=== PATIENT | female | born 1930 | race Caucasian/White ===

== ENCOUNTER 2017-04-03 14:47 | Observation (INO) | payer MEDICARE, OTHER ==
[~2017-04-03] VITALS: Ht 157.5 cm; Wt 75.2 kg
[2017-04-03] MEDS ORDERED: SODIUM CHLORIDE 0.9% 1000ML 1,000 ML IV STA (15:43)
[2017-04-03] MEDS ORDERED: ONDANSETRON INJ 2 MG/ML 2 ML VIAL IV STA (15:43)
--- NOTE | 2017-04-03 15:49 | EMERGENCY ROOM VISIT NOTE ---
History Report prepared by Myesha: Renata Delgadillo Under the Supervision of: Dr. Sean La D.O. First contact with patient: 15:36 Chief Complaint: FALL Stated Complaint: FALL Nursing Triage Summary: Fall on a boat dock. Left sided rib cage pain. She relates that she is having difficulty breathing. She is asthmatic but this is different. Pain to the back of the upper arms. The relates that she was hanging off the dock. Unable to take deep breaths due to the pain. Lung sounds diminished. History of Present Illness The patient is an 87 year old female who presents to the Emergency Room with complaints of a fall 1 hour ago. The patient was getting out of a boat when she fell between the boat and the dock. She reports left rib pain, left wrist pain, and right upper arm pain. She denies any head injury, neck pain, hip pain, abdominal pain, back pain, elbow pain, or shoulder pain. She is able to ambulate. She is on baby aspirin a day. She denies being on any other blood thinners. Source of History: patient, family Onset: 1 hour ago Position: other (global) Quality: other (fall) Timing: other (episodic) Associated Symptoms: No neck pain, No abdominal pain, No back pain Note: Pt reports left rib pain, left wrist pain, right upper arm pain. Pt denies head injury, hip pain, elbow pain, shoulder pain. Review of Systems See HPI for pertinent positives & negatives. A total of 10 systems reviewed and were otherwise negative. Past Medical & Surgical Medical Problems: (1) Diabetes mellitus, type 2 Family History Cancer Social History Smoking Status: Never Smoker Marital Status: Occupation Status: retired Current/Historical Medications Scheduled Aspirin (Aspirin Ec), 81 MG PO DAILY Gabapentin (Neurontin), 100 MG PO TID Metformin Hcl (Glucophage), 500 MG PO DAILY Multivitamin (Multivitamin), 1 TAB PO DAILY Simvastatin (Zocor), 20 MG PO QPM Triamterene/Hctz (Dyazide 37.5MG/25MG), 1 TAB PO DAILY Scheduled PRN Albuterol Sulfate (Proventil Hfa), 2 PUFFS INH Q4H PRN for Wheezing Allergies Coded Allergies: Aspartame (Verified Allergy, Unknown, 04/03/17) Egg (Verified Allergy, Unknown, 04/03/17) Azithromycin (Verified Adverse Reaction, Mild, VOMITING, 7/9/17) Omeprazole (Verified Adverse Reaction, Mild, VOMITING, 04/03/17) Codeine (Verified Adverse Reaction, Unknown, N&V, 04/03/17) Physical Exam Vital Signs Date Time Temp Pulse Resp B/P (MAP) Pulse Ox O2 Delivery O2 Flow Rate FiO2 04/03/17 18:00 94 20 156/89 94 Room Air 04/03/17 17:14 94 20 159/85 92 Room Air 04/03/17 16:01 89 18 161/97 93 Room Air 04/03/17 15:29 93 04/03/17 15:27 94 Room Air 04/03/17 15:00 94 Room Air 04/03/17 14:58 36.5 102 20 156/86 94 Room Air Physical Exam GENERAL: Patient is awake, alert, very anxious, and uncomfortable appearing, appears to be in moderate pain. EYES: The conjunctivae are clear. The pupils are round and reactive. EARS, NOSE, MOUTH AND THROAT: The nose is without any evidence of any deformity. Mucous membranes are moist tongue is midline NECK: Left sided tenderness over the cervical spine, no midline tenderness appreciated, ROM appears intact RESPIRATORY: Normal respiratory effort is noted there is no evidence of wheezing rhonchi or rales CARDIOVASCULAR: Regular rate and rhythm noted there no murmurs rubs or gallops normal S1 normal S2 GASTROINTESTINAL: The abdomen is moderately distended with significant LUQ tenderness to palpation BACK: No midline tenderness to palpation. MUSCULOSKELETAL/EXTREMITIES: There is tenderness over the left lateral ribcage, this extends into the upper abdomen, there was tenderness over the lateral left wrist, ROM appears intact, there was ecchymosis on the right upper arm, no deformity was appreciated, pedal edema bilaterally. SKIN: There is no obvious evidence of any rash. There are no petechiae, pallor or cyanosis noted. NEUROLOGIC: Patient is awake alert and oriented x3 Medical Decision & Procedures ER Provider Diagnostic Interpretation: X-ray results as stated below per interpretation by me and the radiologist. Radiology results as stated below per my review and radiologist interpretation: RIGHT HUMERUS 2 VIEWS CLINICAL HISTORY: Fall with right arm pain. FINDINGS: AP and lateral views of the right humerus are obtained. No prior studies are available for comparison at the time of dictation. The skeletal structures are osteopenic. There is no radiographic evidence of right humeral fracture. Arthritic change is seen in the shoulder and elbow. An IV catheter is present in the antecubital fossa. The overlying soft tissues are within normal limits. The visualized right lung parenchyma appears clear. IMPRESSION: Osteopenia with no radiographic evidence of right humeral fracture. Electronically signed by: Presley Romero M.D. 04/03/2017 6:07 PM Dictated Date/Time: 04/03/2017 6:06 PM SINGLE VIEW CHEST CLINICAL HISTORY: Fall. Left-sided chest pain. FINDINGS: An AP, semierect, upright chest radiograph is correlated with chest CT performed earlier the same day 04/03/2017. The examination is degraded by portable technique and patient rotation. The cardiomediastinal silhouette is unremarkable. There is atherosclerotic calcification of the thoracic aorta. Bibasilar atelectasis is noted. There is chronic interstitial thickening. No airspace consolidation, large pleural effusion, or pneumothorax is seen. The skeletal structures are osteopenic. The left-sided rib fractures seen by CT are not well visualized by x-ray. Calcific tendinopathy is noted in the left shoulder. Degenerative change is seen throughout the thoracic spine. IMPRESSION: 1. No acute cardiopulmonary abnormality. 2. The patient's known left-sided rib fractures seen on today's CT scan were not apparent by x-ray. Electronically signed by: Presley Romero M.D. 04/03/2017 6:06 PM Dictated Date/Time: 04/03/2017 6:04 PM LEFT WRIST 4 VIEWS CLINICAL HISTORY: Fall with left wrist pain. FINDINGS: 4 views of left wrist are obtained. No prior studies are available for comparison at the time of dictation. The skeletal structures are osteopenic. There is no radiographic evidence of left wrist fracture. Mild arthritic change is seen throughout the wrist, greatest at the first carpometacarpal joint. Mild overlying soft tissue edema is observed. IMPRESSION: 1. Soft tissue swelling with no radiographic evidence of left wrist fracture. Consider short-term radiographic follow-up if there is strong clinical concern for occult fracture. 2. Osteopenia and mild arthritic change as above. Electronically signed by: Presley Romero M.D. 04/03/2017 6:04 PM Dictated Date/Time: 04/03/2017 6:[address] SCAN OF THE CHEST, ABDOMEN, AND PELVIS WITH IV CONTRAST CLINICAL HISTORY: Fall. COMPARISON STUDY: No priors. TECHNIQUE: Following the IV administration of 116 of Optiray 320, CT scan of the chest, abdomen, and pelvis was performed from the thoracic inlet to the proximal femora. Images are reviewed in the axial, sagittal, and coronal planes. IV contrast was administered without complication. Automated dose control exposure was utilized. The examination is degraded by streak artifact from the left arm which could not be elevated above the chest or abdomen. FINDINGS: CHEST: Thyroid: Imaged portions of the thyroid gland are normal in size and attenuation. A subcentimeter nodule is noted in the right lobe. Thoracic aorta: There is atherosclerotic calcification of the thoracic aorta, which is normal in caliber and demonstrates standard 3-vessel arch anatomy. No dissection is seen. Pulmonary vasculature: The pulmonary trunk is normal in caliber. There are no filling defects identified in the central pulmonary vessels to indicate pulmonary was. Note that this examination was not protocoled for evaluation of the pulmonary arteries. Heart: The heart is normal in size and configuration, and without pericardial effusion. The coronary arteries are densely calcified. Lungs and pleural spaces: There is no airspace consolidation, pleural effusion, or pneumothorax. Dependent atelectasis is observed. The trachea and central airways are clear. Scattered calcified granulomas are observed. Mediastinum: There is no mediastinal hematoma or lymphadenopathy. Teresa: Clear. Axillae: There is no axillary lymphadenopathy. Bony thorax: The skeletal structures are osteopenic. There are acute and distracted left lateral fifth through ninth rib fractures. The remainder the bony thorax appears intact. No lytic or blastic lesions are identified. Degenerative change is noted in the thoracic spine and shoulders. Soft tissues: The right breast is not identified and presumed surgically absent. ABDOMEN AND PELVIS: Liver: The contrast-enhanced liver is normal in size, contour, and attenuation. There is no intrahepatic or ductal dilatation. The hepatic veins and portal veins are patent. Gallbladder: Unremarkable. Spleen: Normal in size and attenuation. Pancreas: Moderately atrophic and grossly unremarkable. Adrenal glands: Unremarkable. Kidneys: The contrast enhanced kidneys are atrophic and without hydronephrosis. The kidneys enhance symmetrically. A 1.6 cm cyst is noted in the right kidney. Abdominal vasculature: The abdominal aorta is normal in course and caliber noting moderate to advanced atherosclerotic calcification. Bowel: The small bowel and colon are normal in course and caliber. There is mild colonic diverticulosis without CT evidence of acute diverticulitis. The appendix is not identified and reported surgically absent. Peritoneum: There is no intraperitoneal free air or abdominal ascites. There is a small fat-containing umbilical hernia. Lymphadenopathy: None. Pelvic viscera: The bladder is normal as visualized. The uterus is surgically absent. No adnexal lesion is seen. There is a fat-containing left inguinal hernia. Pelvic floor prolapse is suggested. Skeletal structures: The skeletal structures are osteopenic. The lumbosacral spine and bony pelvis appear intact. Moderate lumbosacral spondylosis is observed. No lytic or blastic lesions are seen. IMPRESSION: 1. There are acute nondistracted left lateral 5th through 9th rib fractures. 2. No additional fracture is identified. 3. There is no airspace consolidation, pleural effusion, or pneumothorax. 4. There is no evidence of solid organ injury in the abdomen or pelvis. 5. No acute infectious or inflammatory findings are seen in the abdomen or pelvis. 6. Mild colonic diverticulosis without CT evidence of acute diverticulitis. 7. Additional findings as above. Electronically signed by: Presley Romero M.D. 04/03/2017 5:07 PM Dictated Date/Time: 04/03/2017 4:[address] SCAN OF THE CERVICAL SPINE CLINICAL HISTORY: Fall. COMPARISON STUDY: No priors. TECHNIQUE: CT scan of the cervical spine is performed from the skull base to the upper thoracic spine. Images are reviewed in the axial, sagittal, and coronal planes. IV contrast was not administered for this examination. FINDINGS: Skeletal structures: The skeletal structures are osteopenic. There is no evidence of fracture or subluxation involving the cervical spine. There is incomplete bony fusion of the posterior ring of C1, likely on a congenital basis. Vertebral body height and alignment are maintained. The odontoid process and lateral masses are intact. The atlantoaxial articulation is preserved noting mild productive degenerative change. The spinous processes appear intact. There is mild multilevel cervical spondylosis. Facet arthropathy is noted at several levels. Intervertebral discs: The disc spaces are well maintained. Central canal: Gross patent. Soft tissues: The prevertebral and paraspinous soft tissues are within normal limits. There is evidence carotid calcification of the carotid bulbs. A subcentimeter nodule is noted in the right lobe of the thyroid. Calvarium: The visualized calvarium at the skull base appears intact. Brain parenchyma: Partially visualized brain parenchyma the skull base is within normal limits noting age-related involutional change. Sinuses and mastoids: The visualized paranasal sinuses are clear. The mastoid air cells are well pneumatized. Lung apices: Clear as visualized. IMPRESSION: 1. There is no evidence of fracture or subluxation involving the cervical spine. 2. Osteopenia and spondylotic change as above. Electronically signed by: Presley Romero M.D. 04/03/2017 4:54 PM Dictated Date/Time: 04/03/2017 4:[address] SCAN OF THE BRAIN WITHOUT IV CONTRAST CLINICAL HISTORY: Fall. COMPARISON STUDY: No priors. TECHNIQUE: Unenhanced axial CT scan of the brain is performed from the vertex to the skull base. CT DOSE: 2265.41 mGy.cm FINDINGS: Brain parenchyma: There are age-related involutional changes noting moderate patchy subcortical and periventricular microangiopathic change. There is no hemorrhage, mass effect, or evidence of acute territorial ischemia by CT criteria. Stanley-white matter is preserved. No extra-axial fluid collection is seen. Ventricles, sulci, cisterns: Prominent secondary to involutional change. Intracranial vasculature: There is atherosclerotic calcification of the cavernous carotid and vertebral arteries. Calvarium: The skeletal structures are osteopenic. There is no depressed calvarial fracture. Sinuses and mastoids: The visualized paranasal sinuses are clear. The mastoid air cells are well pneumatized. Orbits: The bony orbits are grossly intact. There are bilateral ocular lens implants. IMPRESSION: There is no hemorrhage, mass effect, or evidence of acute territorial ischemia by CT criteria. Electronically signed by: Presley Romero M.D. 04/03/2017 4:50 PM Dictated Date/Time: 04/03/2017 4:48 PM Laboratory Results 04/03/17 15:15 Red Blood Count 5.22, Mean Corpuscular Volume 89.1, Mean Corpuscular Hemoglobin 29.7, Mean Corpuscular Hemoglobin Concent 33.3, Mean Platelet Volume 11.6, Neutrophils (%) (Auto) 59.9, Lymphocytes (%) (Auto) 28.0, Monocytes (%) (Auto) 7.6, Eosinophils (%) (Auto) 3.5, Basophils (%) (Auto) 0.5, Neutrophils # (Auto) 6.54, Lymphocytes # (Auto) 3.05, Monocytes # (Auto) 0.83, Eosinophils # (Auto) 0.38, Basophils # (Auto) 0.05 04/03/17 15:15 Test 04/03/17 15:15 04/03/17 16:20 04/03/17 16:23 White Blood Count 10.91 K/uL (4.8-10.8) Red Blood Count 5.22 M/uL (4.2-5.4) Hemoglobin 15.5 g/dL (12.0-16.0) Hematocrit 46.5 % (37-47) Mean Corpuscular Volume 89.1 fL (80-100) Mean Corpuscular Hemoglobin 29.7 pg (25-34) Mean Corpuscular Hemoglobin Concent 33.3 g/dl (32-36) Platelet Count 250 K/uL (130-400) Mean Platelet Volume 11.6 fL (7.4-10.4) Neutrophils (%) (Auto) 59.9 % Lymphocytes (%) (Auto) 28.0 % Monocytes (%) (Auto) 7.6 % Eosinophils (%) (Auto) 3.5 % Basophils (%) (Auto) 0.5 % Neutrophils # (Auto) 6.54 K/uL (1.4-6.5) Lymphocytes # (Auto) 3.05 K/uL (1.2-3.4) Monocytes # (Auto) 0.83 K/uL (0.11-0.59) Eosinophils # (Auto) 0.38 K/uL (0-0.5) Basophils # (Auto) 0.05 K/uL (0-0.2) RDW Standard Deviation 49.1 fL (36.4-46.3) RDW Coefficient of Variation 15.1 % (11.5-14.5) Immature Granulocyte % (Auto) 0.5 % Immature Granulocyte # (Auto) 0.06 K/uL (0.00-0.02) Prothrombin Time 10.8 SECONDS (9.0-12.0) Prothromb Time International Ratio 1.0 (0.9-1.1) Activated Partial Thromboplast Time 28.2 SECONDS (21.0-31.0) Partial Thromboplastin Ratio 1.1 Est Creatinine Clear Calc Drug Dose 29.9 ml/min Estimated GFR () 42.7 Estimated GFR (Non- 36.9 BUN/Creatinine Ratio 17.2 (10-20) Calcium Level 9.0 mg/dl (8.5-10.1) Total Bilirubin 0.4 mg/dl (0.2-1) Direct Bilirubin mg/dl (0-0.2) Aspartate Amino Transf (AST/SGOT) U/L (15-37) Alanine Aminotransferase (ALT/SGPT) 30 U/L (12-78) Alkaline Phosphatase 89 U/L (45-117) Total Creatine Kinase U/L (26-192) Creatine Kinase MB 1.2 ng/ml (0.5-3.6) Creatine Kinase MB Ratio (0-3.0) Troponin I < 0.015 ng/ml (0-0.045) Total Protein 7.5 gm/dl (6.4-8.2) Albumin 3.5 gm/dl (3.4-5.0) Lipase 282 U/L (73-393) Urine Color YELLOW Urine Appearance CLOUDY (CLEAR) Urine pH 7.5 (4.5-7.5) Urine Specific [place] 1.016 (1.000-1.030) Urine Protein NEG (NEG) Urine Glucose (UA) NEG (NEG) Urine Ketones NEG (NEG) Urine Occult Blood NEG (NEG) Urine Nitrite NEG (NEG) Urine Bilirubin NEG (NEG) Urine Urobilinogen NEG (NEG) Urine Leukocyte Esterase MODERATE (NEG) Urine WBC (Auto) 10-30 /hpf (0-5) Urine RBC (Auto) 0-4 /hpf (0-4) Urine Hyaline Casts (Auto) 1-5 /lpf (0-5) Urine Epithelial Cells (Auto) 20-30 /lpf (0-5) Urine Bacteria (Auto) NEG (NEG) Urine Yeast (Auto) (NONE PRSENT) Bedside Hemoglobin 15.3 g/dl (12.0-16.0) Bedside Hematocrit 45 % (37-47) Bedside Sodium 138 mEq/L (135-144) Bedside Potassium 3.7 mEq/L (3.3-5.0) Bedside Chloride 96 mEq/L (101-112) Bedside Total CO2 27 mEq/l (24-31) Anion Gap 19.0 mmol/L (16-25) Bedside Blood Urea Nitrogen 25 mg/dl (7-18) Bedside Creatinine 1.1 mg/dl (0.6-1.3) Bedside Glucose (other) 127 mg/dl (70-99) Bedside Ionized Calcium (Britney) 1.16 mmol/l (1.12-1.32) Laboratory results per my review. Medications Administered Medications (Trade) Dose Ordered Sig/Latoya Route Start Time Stop Time Status Last Admin Dose Admin Sodium Chloride 1,000 ml @ 125 mls/hr Q8H STAT IV 04/03/17 15:43 04/03/17 23:42 04/03/17 15:43 125 MLS/HR Fentanyl Citrate (Fentanyl Inj) 50 mcg Q20M PRN IV 04/03/17 15:45 04/17/17 15:44 04/03/17 18:13 50 MCG Ondansetron HCl (Zofran Inj) 4 mg NOW STAT IV 04/03/17 15:43 04/03/17 15:46 DC 04/03/17 15:52 4 MG ECG Indication: other (fall) Rate (beats per minute): 85 Rhythm: normal sinus Findings: no ectopy, other (no acute ST segment abnormality, LVH by voltage criteria) Comparison ECG Date: 11-Aug-2004 Change: no significant change ED Course 1540: The patient was evaluated in room A12B. A complete history and physical examination were performed. 1543: Zofran Inj 4 mg IV, NSS 1000 ml @ 125 mls/hr IV. 1545: Fentanyl Citrate 50 mcg IV. 1745: Upon reevaluation, the patient is stable. I discussed results and treatment plan with her and her family. They verbalize agreement and understanding. The patient will be evaluated for further management and care. 1808: I discussed the patient's case with Dr. Schuler, [facility] hospitalist. The patient will be evaluated for further management. Medical Decision Prior records/ancillary studies reviewed. Triage Nursing notes reviewed. Additional history obtained from family. The patient's history was concerning for traumatic injury Differential diagnosis: Etiologies such as fracture, dislocation, intra-abdominal, pneumothorax, intrathoracic , intracranial, neurologic, as well as other traumatic pathologies were entertained. Medication Reconciliation: I attest that I have personally reviewed the patient' s current medications list. Patient was found to have a slightly elevated blood pressure due to circumstances. I do not believe that the patient requires hypertension monitoring. The patient is an 87-year-old female who presented to the emergency department after a fall. She was getting off a boat when she fell landing on her left side. She has multiple left-sided rib fractures but no pneumothorax hemothorax or pulmonary contusion at this time. She does not appear to have any intra- abdominal trauma. The patient was treated with IV fluids IV pain medicine and IV antiemetics. She was reevaluated multiple times. I discussed the patient's laboratory and radiographic studies with her. She was significantly improved but I'm very concerned given her age and comorbidities that with this many rib fracture she may not do well as an outpatient for this reason I discussed her case with the on-call [facility] hospitalist. They've agreed to evaluate the patient in the emergency department for further management and disposition. Consults Time Called: 1741 Consulting Phys[facility] Return[facility] Call: [phone] I discussed the patient's case with her. The patient will be evaluated for further management. Impression Primary Impression: Fall Additional Impressions: Multiple fractures of ribs of left side Chest wall contusion Abdominal contusion Left wrist sprain Scribe Attestation The scribe's documentation has been prepared under my direction and personally reviewed by me in its entirety. I confirm that the note above accurately reflects all work, treatment, procedures, and medical decision making performed by me. Departure Information Dispostion Being Evaluated By Hospitalist Usman Melchor, D.O. (PCP) Patient Instructions My [facility] Problem Qualifiers Primary Impression: Fall Encounter type: initial encounter Qualified Codes: W19.XXXA - Unspecified fall, initial encounter Additional Impressions: Multiple fractures of ribs of left side Encounter type: initial encounter Fracture type: closed Qualified Codes: S22.42XA - Multiple fractures of ribs, left side, initial encounter for closed fracture Chest wall contusion Encounter type: initial encounter Laterality: left Qualified Codes: S20.212A - Contusion of left front wall of thorax, initial encounter Left wrist sprain Encounter type: initial encounter Qualified Codes: S63.502A - Unspecified sprain of left wrist, initial encounter
[2017-04-03] MEDS: FENTANYL CITRATE INJ 50 MCG/1 ML 2 ML VIAL IV PRN ×2 (15:53→18:13)
[2017-04-03] MEDS ORDERED: ASPI81TA28 PO (15:55)
[2017-04-03] MEDS ORDERED: ALBUAER INH (15:55)
[2017-04-03] MEDS ORDERED: GABA-112 PO (15:55)
[2017-04-03] MEDS ORDERED: SIMV20TA2 PO (15:55)
[2017-04-03] MEDS ORDERED: TRIA37.5 PO (15:55)
[2017-04-03] MEDS ORDERED: MULT-506 PO (15:55)
[2017-04-03] MEDS ORDERED: GLC/500 PO (15:55)
[2017-04-03 15:57] LABS: BASO % 0.5 %; BASO ABS # 0.05 K/uL (0-0.2); COMPLETE YES; EOS % 3.5 %; HEMATOCRIT 46.5 % (37-47); IG% 0.5 %; LYMPH ABS # 3.05 K/uL (1.2-3.4); MEAN CELL VOLUME 89.1 fL (80-100); MEAN CORPUSCULAR HEMOGLOBIN 29.7 pg (25-34); MEAN CORPUSCULAR HGB CONC 33.3 g/dl (32-36); MEAN PLATELET VOLUME 11.6 fL (7.4-10.4); MONO % 7.6 %; NEUT % 59.9 %; PLATELET COUNT 250 K/uL (130-400); RED BLOOD COUNT 5.22 M/uL (4.2-5.4); WHITE BLOOD COUNT 10.91 K/uL (4.8-10.8)
[2017-04-03 16:12] LABS: ALKALINE PHOSPHATASE 89 U/L (45-117); ALT/SGPT 30 U/L (12-78); BLOOD UREA NITROGEN 22 mg/dl (7-18); BUN/CREATININE RATIO 17.2 (10-20); CARBON DIOXIDE 26 mmol/L (21-32); CHLORIDE 102 mmol/L (98-107); GLUCOSE 150 mg/dl (70-99); SODIUM 138 mmol/L (136-145)
[2017-04-03 16:15] LABS: PARTIAL THROMBOPLASTIN RATIO 1.1; PROTHROMBIN TIME (PATIENT) 10.8 SECONDS (9.0-12.0)
[2017-04-03 16:35] LABS: ISTAT CREATININE 1.1 mg/dl (0.6-1.3); ISTAT HEMOGLOBIN 15.3 g/dl (12.0-16.0); ISTAT IONIZED CALCIUM 1.16 mmol/l (1.12-1.32)
[2017-04-03 16:41] LABS: MANUAL MICROSCOPIC REQUIRED? NO; REVIEW REQ? YES; URINE APPEARANCE CLOUDY (CLEAR); URINE BILIRUBIN NEG (NEG); URINE COLOR YELLOW; URINE EPITHELIAL CELL AUTO 20-30 /lpf (0-5); URINE NITRITE NEG (NEG); URINE PH 7.5 (4.5-7.5); URINE SPECIFIC GRAVITY 1.016 (1.000-1.030); UROBILINOGEN NEG (NEG)
[2017-04-03] MEDS ORDERED: OPTIRAY 320 IV PRN (16:45)
--- NOTE | 2017-04-03 16:52 | DIAGNOSTIC IMAGING REPORT ---
CT SCAN OF THE BRAIN WITHOUT IV CONTRAST CLINICAL HISTORY: Fall. COMPARISON STUDY: No priors. TECHNIQUE: Unenhanced axial CT scan of the brain is performed from the vertex to the skull base. CT DOSE: 2265.41 mGy.cm FINDINGS: Brain parenchyma: There are age-related involutional changes noting moderate patchy subcortical and periventricular microangiopathic change. There is no hemorrhage, mass effect, or evidence of acute territorial ischemia by CT criteria. Stanley-white matter is preserved. No extra-axial fluid collection is seen. Ventricles, sulci, cisterns: Prominent secondary to involutional change. Intracranial vasculature: There is atherosclerotic calcification of the cavernous carotid and vertebral arteries. Calvarium: The skeletal structures are osteopenic. There is no depressed calvarial fracture. Sinuses and mastoids: The visualized paranasal sinuses are clear. The mastoid air cells are well pneumatized. Orbits: The bony orbits are grossly intact. There are bilateral ocular lens implants. IMPRESSION: There is no hemorrhage, mass effect, or evidence of acute territorial ischemia by CT criteria. Electronically signed by: Presley Romero M.D. 04/03/2017 4:50 PM Dictated Date/Time: 04/03/2017 4:48 PM
--- NOTE | 2017-04-03 16:56 | DIAGNOSTIC IMAGING REPORT ---
CT SCAN OF THE CERVICAL SPINE CLINICAL HISTORY: Fall. COMPARISON STUDY: No priors. TECHNIQUE: CT scan of the cervical spine is performed from the skull base to the upper thoracic spine. Images are reviewed in the axial, sagittal, and coronal planes. IV contrast was not administered for this examination. FINDINGS: Skeletal structures: The skeletal structures are osteopenic. There is no evidence of fracture or subluxation involving the cervical spine. There is incomplete bony fusion of the posterior ring of C1, likely on a congenital basis. Vertebral body height and alignment are maintained. The odontoid process and lateral masses are intact. The atlantoaxial articulation is preserved noting mild productive degenerative change. The spinous processes appear intact. There is mild multilevel cervical spondylosis. Facet arthropathy is noted at several levels. Intervertebral discs: The disc spaces are well maintained. Central canal: Gross patent. Soft tissues: The prevertebral and paraspinous soft tissues are within normal limits. There is evidence carotid calcification of the carotid bulbs. A subcentimeter nodule is noted in the right lobe of the thyroid. Calvarium: The visualized calvarium at the skull base appears intact. Brain parenchyma: Partially visualized brain parenchyma the skull base is within normal limits noting age-related involutional change. Sinuses and mastoids: The visualized paranasal sinuses are clear. The mastoid air cells are well pneumatized. Lung apices: Clear as visualized. IMPRESSION: 1. There is no evidence of fracture or subluxation involving the cervical spine. 2. Osteopenia and spondylotic change as above. Electronically signed by: Presley Romero M.D. 04/03/2017 4:54 PM Dictated Date/Time: 04/03/2017 4:48 PM
--- NOTE | 2017-04-03 17:08 | DIAGNOSTIC IMAGING REPORT ---
CT SCAN OF THE CHEST, ABDOMEN, AND PELVIS WITH IV CONTRAST CLINICAL HISTORY: Fall. COMPARISON STUDY: No priors. TECHNIQUE: Following the IV administration of 116 of Optiray 320, CT scan of the chest, abdomen, and pelvis was performed from the thoracic inlet to the proximal femora. Images are reviewed in the axial, sagittal, and coronal planes. IV contrast was administered without complication. Automated dose control exposure was utilized. The examination is degraded by streak artifact from the left arm which could not be elevated above the chest or abdomen. FINDINGS: CHEST: Thyroid: Imaged portions of the thyroid gland are normal in size and attenuation. A subcentimeter nodule is noted in the right lobe. Thoracic aorta: There is atherosclerotic calcification of the thoracic aorta, which is normal in caliber and demonstrates standard 3-vessel arch anatomy. No dissection is seen. Pulmonary vasculature: The pulmonary trunk is normal in caliber. There are no filling defects identified in the central pulmonary vessels to indicate pulmonary was. Note that this examination was not protocoled for evaluation of the pulmonary arteries. Heart: The heart is normal in size and configuration, and without pericardial effusion. The coronary arteries are densely calcified. Lungs and pleural spaces: There is no airspace consolidation, pleural effusion, or pneumothorax. Dependent atelectasis is observed. The trachea and central airways are clear. Scattered calcified granulomas are observed. Mediastinum: There is no mediastinal hematoma or lymphadenopathy. Teresa: Clear. Axillae: There is no axillary lymphadenopathy. Bony thorax: The skeletal structures are osteopenic. There are acute and distracted left lateral fifth through ninth rib fractures. The remainder the bony thorax appears intact. No lytic or blastic lesions are identified. Degenerative change is noted in the thoracic spine and shoulders. Soft tissues: The right breast is not identified and presumed surgically absent. ABDOMEN AND PELVIS: Liver: The contrast-enhanced liver is normal in size, contour, and attenuation. There is no intrahepatic or ductal dilatation. The hepatic veins and portal veins are patent. Gallbladder: Unremarkable. Spleen: Normal in size and attenuation. Pancreas: Moderately atrophic and grossly unremarkable. Adrenal glands: Unremarkable. Kidneys: The contrast enhanced kidneys are atrophic and without hydronephrosis. The kidneys enhance symmetrically. A 1.6 cm cyst is noted in the right kidney. Abdominal vasculature: The abdominal aorta is normal in course and caliber noting moderate to advanced atherosclerotic calcification. Bowel: The small bowel and colon are normal in course and caliber. There is mild colonic diverticulosis without CT evidence of acute diverticulitis. The appendix is not identified and reported surgically absent. Peritoneum: There is no intraperitoneal free air or abdominal ascites. There is a small fat-containing umbilical hernia. Lymphadenopathy: None. Pelvic viscera: The bladder is normal as visualized. The uterus is surgically absent. No adnexal lesion is seen. There is a fat-containing left inguinal hernia. Pelvic floor prolapse is suggested. Skeletal structures: The skeletal structures are osteopenic. The lumbosacral spine and bony pelvis appear intact. Moderate lumbosacral spondylosis is observed. No lytic or blastic lesions are seen. IMPRESSION: 1. There are acute nondistracted left lateral 5th through 9th rib fractures. 2. No additional fracture is identified. 3. There is no airspace consolidation, pleural effusion, or pneumothorax. 4. There is no evidence of solid organ injury in the abdomen or pelvis. 5. No acute infectious or inflammatory findings are seen in the abdomen or pelvis. 6. Mild colonic diverticulosis without CT evidence of acute diverticulitis. 7. Additional findings as above. Electronically signed by: Presley Romero M.D. 04/03/2017 5:07 PM Dictated Date/Time: 04/03/2017 4:51 PM
--- NOTE | 2017-04-03 18:05 | DIAGNOSTIC IMAGING REPORT ---
LEFT WRIST 4 VIEWS CLINICAL HISTORY: Fall with left wrist pain. FINDINGS: 4 views of left wrist are obtained. No prior studies are available for comparison at the time of dictation. The skeletal structures are osteopenic. There is no radiographic evidence of left wrist fracture. Mild arthritic change is seen throughout the wrist, greatest at the first carpometacarpal joint. Mild overlying soft tissue edema is observed. IMPRESSION: 1. Soft tissue swelling with no radiographic evidence of left wrist fracture. Consider short-term radiographic follow-up if there is strong clinical concern for occult fracture. 2. Osteopenia and mild arthritic change as above. Electronically signed by: Presley Romero M.D. 04/03/2017 6:04 PM Dictated Date/Time: 04/03/2017 6:03 PM
--- NOTE | 2017-04-03 18:07 | DIAGNOSTIC IMAGING REPORT ---
SINGLE VIEW CHEST CLINICAL HISTORY: Fall. Left-sided chest pain. FINDINGS: An AP, semierect, upright chest radiograph is correlated with chest CT performed earlier the same day 04/03/2017. The examination is degraded by portable technique and patient rotation. The cardiomediastinal silhouette is unremarkable. There is atherosclerotic calcification of the thoracic aorta. Bibasilar atelectasis is noted. There is chronic interstitial thickening. No airspace consolidation, large pleural effusion, or pneumothorax is seen. The skeletal structures are osteopenic. The left-sided rib fractures seen by CT are not well visualized by x-ray. Calcific tendinopathy is noted in the left shoulder. Degenerative change is seen throughout the thoracic spine. IMPRESSION: 1. No acute cardiopulmonary abnormality. 2. The patient's known left-sided rib fractures seen on today's CT scan were not apparent by x-ray. Electronically signed by: Presley Romero M.D. 04/03/2017 6:06 PM Dictated Date/Time: 04/03/2017 6:04 PM
--- NOTE | 2017-04-03 18:08 | DIAGNOSTIC IMAGING REPORT ---
RIGHT HUMERUS 2 VIEWS CLINICAL HISTORY: Fall with right arm pain. FINDINGS: AP and lateral views of the right humerus are obtained. No prior studies are available for comparison at the time of dictation. The skeletal structures are osteopenic. There is no radiographic evidence of right humeral fracture. Arthritic change is seen in the shoulder and elbow. An IV catheter is present in the antecubital fossa. The overlying soft tissues are within normal limits. The visualized right lung parenchyma appears clear. IMPRESSION: Osteopenia with no radiographic evidence of right humeral fracture. Electronically signed by: Presley Romero M.D. 04/03/2017 6:07 PM Dictated Date/Time: 04/03/2017 6:06 PM
[2017-04-03] MEDS ORDERED: DEXTROSE 50% 50 ML SYR IV PRN (18:45)
[2017-04-03] MEDS ORDERED: ONDANSETRON INJ 2 MG/ML 2 ML VIAL IV PRN (18:45)
[2017-04-03] MEDS ORDERED: GLUCAGON FOR INJ 1 MG VIAL SQ PRN (18:45)
[2017-04-03] MEDS ORDERED: GLUCOSE 40% GEL 15 GM TUBE PO PRN (18:45)
[2017-04-03] MEDS ORDERED: GLUCOSE 10 TABS/TUBE PO PRN (18:45)
[2017-04-03] MEDS ORDERED: PHARMACY GLYCEMIC MGMT CONSULT PRN (19:11)
--- NOTE | 2017-04-03 19:16 | Pharmacy Progress Note ---
Glycemic Control Intl Consult Date of Service Apr 03, 2017. Scope Glycemic Pharmacist consulted by Dr Schuler on 04/03/17 for glycemic control and to write orders per [facility] inpatient glycemic control protocol Objective Weight (Kilograms): 80.000 Accuchecks BSG (last 24hrs): Test 04/03/17 15:15 Random Glucose 150 mg/dl (70-99) Laboratory Data (last 24hrs) Test 04/03/17 15:15 04/03/17 16:23 Anion Gap 10.0 mmol/L 19.0 mmol/L BUN/Creatinine Ratio 17.2 Blood Urea Nitrogen 22 mg/dl Creatinine 1.30 mg/dl Potassium Level mmol/L Sodium Level 138 mmol/L White Blood Count 10.91 K/uL Red Blood Count 5.22 M/uL Hemoglobin 15.5 g/dL Hematocrit 46.5 % Mean Corpuscular Volume 89.1 fL Mean Corpuscular Hemoglobin 29.7 pg Mean Corpuscular Hemoglobin Concent 33.3 g/dl Platelet Count 250 K/uL Mean Platelet Volume 11.6 fL Neutrophils (%) (Auto) 59.9 % Lymphocytes (%) (Auto) 28.0 % Monocytes (%) (Auto) 7.6 % Eosinophils (%) (Auto) 3.5 % Basophils (%) (Auto) 0.5 % Neutrophils # (Auto) 6.54 K/uL Lymphocytes # (Auto) 3.05 K/uL Monocytes # (Auto) 0.83 K/uL Eosinophils # (Auto) 0.38 K/uL Basophils # (Auto) 0.05 K/uL Recent Pertinent Medications Outpatient Anti-diabetic Regimen: * metformin 500 mg PO daily Risk Factors for Insulin Resistance: * Diet: type 2 diabetic diet * patient also in significant pain Assessment & Plan ASSESSMENT: * ADA & AACE recommend a goal blood sugar range 140-180 mg/dl for the majority of critically ill & non-critically ill patients. However, more stringent targets may be selected in individual cases. Will utilize more stringent goal of 110-140mg/dl based on patient age & comorbidities. Additionally, tighter glycemic control is warranted to prevent any infections with rib fractures * Ms Dimas is an 87 y/o F who presented to the hospital with multiple L rib fx after falling while getting out of a boat. The patient is at risk for elevated blood sugars due to her pain. I will utilize a weight-based stress of 2 for correctional insulin. Since the patient is on metformin only at home, I do not think that she will require Lantus yet as she most likely does not have much insulin resistance. If she has two blood sugars over 180 mg/dL, then Lantus will be added. * An A1C was added. PLAN FOR INPATIENT GLYCEMIC CONTROL: * Holding outpatient oral diabetes medications * Correctional Insulin with NOVOLOG per scale ACHS * Goal Range: Low 110 mg/dL - High 140 mg/dL * Correction Factor: 30 mg/dL/unit * Nutritional / Prandial insulin per carb ratio of 1 unit per 10 grams CHO consumed * Please note that the plan above was derived based on current level of insulin resistance and hospital stress. These recommendations are appropriate for inpatient admission only. Plan of care upon discharge will need to be reassessed to avoid potential outpatient hypo/hyperglycemia. Thank you.
[2017-04-03 20:04] VITALS: BP 151/91; PULSE 97; TEMP 36.5; O2SAT 93; Ht 157.5 cm; Wt 75.2 kg
[2017-04-03 20:37] VITALS: BP 110/69; PULSE 95; TEMP 36.9; O2SAT 94
[2017-04-03] MEDS ORDERED: IV FLUIDS COMPLETED PRN (20:45)
[2017-04-03] MEDS: INSULIN ASPART 100 UNITS/ML 3 ML PEN SC SCH (21:00)
[2017-04-03] MEDS ORDERED: INSULIN GLARGINE SOLOSTAR 100 UNITS/ML 3 ML PEN SC SCH (21:00)
[2017-04-03] MEDS ORDERED: MoRPHine SULFATE 4 MG/ML 1 ML CARP\\VIAL IV PRN (21:30)
[2017-04-03] MEDS ORDERED: KETOROLAC TROMETHAMINE 15 MG/ML VIAL IM SCH (21:30)
[2017-04-03] MEDS: HEPARIN SOD 5000 UNIT/0.5 ML CARP SQ SCH (21:35)
[2017-04-03] MEDS ORDERED: ALBUTEROL HFA 8 GM INHALER INH PRN (21:45)
[2017-04-03] MEDS: SIMVASTATIN 20 MG TAB PO SCH (21:45)
[2017-04-03] MEDS: GABAPENTIN 100 MG CAP PO SCH (21:45)
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
[2017-04-03] MEDS: KETOROLAC TROMETHAMINE 15 MG/ML VIAL IV. SCH (22:30)
[2017-04-03] MEDS: LIDODERM (LIDOCAINE) PATCH 5% TD SCH (22:30)
[2017-04-03 23:19] VITALS: BP 135/82; PULSE 92; TEMP 36.8; O2SAT 92
[2017-04-04] VITALS (7 sets, daily range): BP systolic 126–145; BP diastolic 76–86; PULSE 62–89; TEMP 36.5–36.8; O2SAT 92–93
[2017-04-04] MEDS: KETOROLAC TROMETHAMINE 15 MG/ML VIAL IV. SCH ×3 (05:39→17:35)
[2017-04-04] MEDS: HEPARIN SOD 5000 UNIT/0.5 ML CARP SQ SCH ×3 (05:39→21:22)
[2017-04-04 06:13] LABS: HEMATOCRIT 42.7 % (37-47); MEAN CELL VOLUME 88.4 fL (80-100); MEAN CORPUSCULAR HEMOGLOBIN 28.8 pg (25-34); MEAN CORPUSCULAR HGB CONC 32.6 g/dl (32-36); MEAN PLATELET VOLUME 10.7 fL (7.4-10.4); PLATELET COUNT 216 K/uL (130-400); RED BLOOD COUNT 4.83 M/uL (4.2-5.4); WHITE BLOOD COUNT 10.71 K/uL (4.8-10.8)
[2017-04-04 06:41] LABS: BUN/CREATININE RATIO 15.4 (10-20); CALCIUM 8.3 mg/dl (8.5-10.1); CREATININE 1.2 mg/dl (0.60-1.20); POTASSIUM 3.7 mmol/L (3.5-5.1)
[2017-04-04] MEDS: TRIAMTERENE/HCTZ 37.5/25MG CAP PO SCH (07:53)
[2017-04-04] MEDS: ASPIRIN 81 MG ECTAB PO SCH (07:53)
[2017-04-04] MEDS: GABAPENTIN 100 MG CAP PO SCH ×3 (07:54→21:18)
[2017-04-04] MEDS: MULTIVITAMIN TAB PO SCH (07:54)
[2017-04-04] MEDS: ACETAMINOPHEN 325 MG TAB PO PRN (07:54)
[2017-04-04] MEDS: INSULIN ASPART 100 UNITS/ML 3 ML PEN SC SCH ×4 (07:56→20:19)
[2017-04-04 08:00] LABS: ESTIMATED AVERAGE GLUCOSE 140 mg/dl; HA1C FLAG Normal (Normal)
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
--- NOTE | 2017-04-04 10:16 | Pharmacy Progress Note ---
Glycemic Control Progress Note Date of Service Apr 04, 2017. Scope Glycemic Pharmacist consulted for glycemic control to write orders per [facility] inpatient glycemic control protocol. Objective Accuchecks BSG (last 24hrs): Test 04/03/17 15:15 04/03/17 20:22 04/04/17 05:46 04/04/17 07:37 Random Glucose 150 mg/dl (70-99) 100 mg/dl (70-99) Bedside Glucose 114 mg/dl (70-90) 95 mg/dl (70-90) HbA1c: Test 04/04/17 05:46 Hemoglobin A1c 6.5 % (4.5-5.6) H Recent Pertinent Medications The patient is currently receiving: * Basal insulin: N/A; none needed * Correctional Insulin: Novolog Correction per scale ACHS Goal Range: Low 110 mg/dL - High 140 mg/dL Correction Factor: 30 mg/dL/unit * Prandial insulin: Per carb ratio of 1 unit per 10 grams CHO consumed * Oral Agents: On hold for admission Outpatient Anti-Diabetic Meds Oral Agents Assessment & Plan ASSESSMENT: * See progress note from 04/03/17 for more background info, in short: * Pt receiving SQ basal bolus insulin regimen for hyperglycemia secondary to baseline DM (outpatient regimen on hold) * Patient is currently receiving minimal units of insulin per day * BSGs ranging 95 - 150 mg/dl over the past 24hrs * Changes needed to insulin regimen: * AM Fasting BSG = 95 mg/dl. This is in goal range for patient based on inpatient targets and co-morbidities. Therefore no exogenous basal insulin needed while metformin on hold * CF/CR may be too aggressive as moderate stress parameters were initiated last evening. Now that A1c and AM fasting BSG have resulted and show adequate outpatient control with small dose of once daily metformin will loosen parameters * Additional notes / comments: If BSGs in rage with current parameters today pharmacy will sign off of glycemic consult. No changes needed to outpatient regimen. PLAN FOR INPATIENT GLYCEMIC CONTROL: * Oral Agents * Continue to hold outpatient oral diabetes medications. * May resume at discharge * Basal insulin * None needed * Bolus insulin: loosen parameters * NovoLog per scale ACHS or Q6hrs while NPO * Goal Range: Low 120 mg/dL - High 160 mg/dL * Correction Factor: 30 mg/dL/unit * Nutritional / Prandial insulin per carb ratio of 1 unit per 18 grams CHO consumed * A1c added to discharge instructions to be communicated to PCP * Please note that the plan above was derived based on current level of insulin resistance and hospital stress. These recommendations are appropriate for inpatient admission only. Plan of care upon discharge will need to be reassessed to avoid potential outpatient hypo/hyperglycemia. Thank you.
--- NOTE | 2017-04-04 14:38 | DIAGNOSTIC IMAGING REPORT ---
CHEST 2 VIEWS ROUTINE CLINICAL HISTORY: Rib fractures. Evaluate for hemothorax. COMPARISON STUDY: Chest radiograph and chest CT April 03, 2017. FINDINGS: Multiple acute mildly displaced and nondisplaced lateral left rib fractures are noted, as shown on CT of April 03, 2017. There is no pneumothorax. There is a suspected trace left pleural effusion. Cardiomediastinal silhouette is stable. There is no evidence of pulmonary edema. IMPRESSION: Multiple acute mildly displaced and nondisplaced lateral left rib fractures, as shown on chest CT. No pneumothorax. Suspected trace left pleural effusion which could reflect a tiny hemothorax. Electronically signed by: Kendrick Hudson M.D. 04/04/2017 2:36 PM Dictated Date/Time: 04/04/2017 2:33 PM
[2017-04-04] MEDS ORDERED: MICONAZOLE NITRATE POWDER 43 GM EXT PRN (17:15)
[2017-04-04] MEDS ORDERED: NURSING DECISION MEDICATION ORDER SCH (17:15)
--- NOTE | 2017-04-04 18:36 | Progress Note ---
Internal Med Progress Note Date of Service: Apr 04, 2017. Provider Documentation: SUBJECTIVE: Patient is sitting in her bed and seems little uncomfortable due to pain. Intermittent pain on left side of chest. Pain increases on deep breath. Has been trying to ambulate in the room and hallway. No other change or complaint. OBJECTIVE: Vital Signs-as noted below Examination: General: WNWD, alert and appropriate, lying supine in bed & uncomfortable due to pain. HEENT: NC/AT, pupils are equal and reactive, normal sclerae, MMM, pharynx non- acute. Cardiac: reg rate, S1/2 heard without m/g/r Lungs: CTA bilaterally, no crackles, rales or wheezes, good diaphragmatic excursion Chest Wall: mild ecchymosis to left chest wall, no open wounds, TTP Abdomen: soft, non-tender, non-distended, no rebound or guarding, +BS Extremity: RP and DP palpable 2+ bilat, no LE swelling or edema, extremities are warm and well-perfused Neurology: (limited exam as patient in severe pain with limited movement) CN 2- 12 grossly intact, sensation intact throughout, no gross focal deficits. Musculoskeletal: (limited exam as patient in severe pain with limited movement) 5/5 strength throughout, no focal deficits Skin: warm and dry and bruising as above. Lab data as noted below. ASSESSMENT & PLAN: Chest X-Ray (Initial) IMPRESSION: 1. No acute cardiopulmonary abnormality. 2. The patient's known left-sided rib fractures seen on today's CT scan were not apparent by x-ray. CT Chest IMPRESSION: 1. There are acute non-distracted left lateral 5th through 9th rib fractures. 2. No additional fracture is identified. 3. There is no airspace consolidation, pleural effusion, or pneumothorax. 4. There is no evidence of solid organ injury in the abdomen or pelvis. 5. No acute infectious or inflammatory findings are seen in the abdomen or pelvis. 6. Mild colonic diverticulosis without CT evidence of acute diverticulitis. 7. Additional findings as above. Chest X-Ray (Repeat) IMPRESSION: Multiple acute mildly displaced and nondisplaced lateral left rib fractures, as shown on chest CT. No pneumothorax. Suspected trace left pleural effusion which could reflect a tiny hemothorax. 87 yo F presents with multiple rib fractures to left chest wall after a fall from standing height. 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 Admitted for pain control and monitoring overnight. With significant trauma, . -Pain control with Lidocaine patch and Toradol scheduled. -Hold off on narcotics if possible unless severe as she has had significant side effects in the past. -Fentanyl given in ER was ok, though. -Encouraged early ambulation and incentive spirometer is at bedside. -PT/OT to evaluation -Noted Cardiothoracic input. Thanks. Discussed case. Hypertension-stable,cont Maxzide per home regimen Type II Diabetes: Holding Metformin -Monitoring BS closely and covering as per protocol. -Pharmacy consult for glycemic management. Dyslipidemia-Continue Zocor per home regimen Peripheral Neuropathy-Continue gabapentin per home regimen History PAD-Continue medical management with ASA 81, statin CKD Stage III, at baseline. -Avoid any nephrotoxin. DVT Prophylaxis: Sq Heparin. Code Status: FULL CODE-per conversation w her. She has an advanced directive. Disposition: Potential discharge on 04/05/2017 Vital Signs: Date Time Temp Pulse Resp B/P (MAP) Pulse Ox O2 Delivery O2 Flow Rate FiO2 04/04/17 16:00 Room Air 04/04/17 15:45 36.8 74 20 126/76 (93) 92 Room Air 04/04/17 12:30 Room Air 04/04/17 12:28 62 16 134/83 (100) 93 04/04/17 10:27 77 93 04/04/17 07:45 Room Air 04/04/17 07:28 36.5 82 16 133/86 (102) 92 04/04/17 04:03 Room Air 04/04/17 04:03 36.5 81 20 133/82 (99) 92 Room Air 04/03/17 23:19 36.8 92 20 135/82 (99) 92 04/03/17 20:37 36.9 95 20 110/69 (83) 94 Room Air 04/03/17 20:04 36.5 97 20 151/91 93 Room Air 04/03/17 19:47 97 20 151/91 93 04/03/17 19:29 97 20 151/91 93 Room Air Lab Results: Results Past 24 Hours Test 04/03/17 20:22 04/04/17 05:46 04/04/17 07:37 04/04/17 11:32 Range/Units Bedside Glucose 114 95 102 70-90 mg/dl White Blood Count 10.71 4.8-10.8 K/uL Red Blood Count 4.83 4.2-5.4 M/uL Hemoglobin 13.9 12.0-16.0 g/dL Hematocrit 42.7 37-47 % Mean Corpuscular Volume 88.4 80-100 fL Mean Corpuscular Hemoglobin 28.8 25-34 pg Mean Corpuscular Hemoglobin Concent 32.6 32-36 g/dl RDW Standard Deviation 49.1 36.4-46.3 fL RDW Coefficient of Variation 15.1 11.5-14.5 % Platelet Count 216 130-400 K/uL Mean Platelet Volume 10.7 7.4-10.4 fL Sodium Level 137 136-145 mmol/L Potassium Level 3.7 3.5-5.1 mmol/L Chloride Level 101 98-107 mmol/L Carbon Dioxide Level 29 21-32 mmol/L Anion Gap 7.0 3-11 mmol/L Blood Urea Nitrogen 18 7-18 mg/dl Creatinine 1.20 0.60-1.20 mg/dl Est Creatinine Clear Calc Drug Dose 32.4 ml/min Estimated GFR () 47.1 Estimated GFR (Non- 40.6 BUN/Creatinine Ratio 15.4 10-20 Random Glucose 100 70-99 mg/dl Estimated Average Glucose 140 mg/dl Hemoglobin A1c 6.5 4.5-5.6 % Calcium Level 8.3 8.5-10.1 mg/dl Test 04/04/17 16:19 Range/Units Bedside Glucose 100 70-90 mg/dl
[2017-04-04] MEDS: LIDODERM (LIDOCAINE) PATCH 5% TD SCH (21:17)
[2017-04-04] MEDS: SIMVASTATIN 20 MG TAB PO SCH (21:18)
[2017-04-05] VITALS: O2SAT 93
[2017-04-05] MEDS: ACETAMINOPHEN 325 MG TAB PO PRN ×2 (02:55→07:55)
[2017-04-05 03:52] VITALS: BP 126/81; PULSE 85; TEMP 36.5; O2SAT 92
[2017-04-05] MEDS: HEPARIN SOD 5000 UNIT/0.5 ML CARP SQ SCH (05:55)
--- NOTE | 2017-04-05 07:37 | Pharmacy Progress Note ---
Pharmacy Glycemic Sign Off Nt Date of Service Apr 05, 2017. Assessment & Plan ASSESSMENT: * Pharmacy was consulted by Dr Schuler on 04/03/17 for glycemic control and to write orders per [facility] inpatient glycemic control protocol. * Major changes made by pharmacy to antidiabetic regimen include: * Holding outpatient med {metformin} and initiating weight based NovoLog bolus insulin SSI * Patient has been receiving/requiring ~6 units of insulin per day for adequate glycemic control * BSGs ranging 95 - 130 mg/dl * Regimen has only required minor adjustments over the past 48hrs to achieve this level of control * Do not anticipate further changes in patient status that would quickly deteriorate glycemic control (i.e. patient to be NPO for upcoming procedure, steroids tapering, starting tube feedings, etc). * Please see recommendations for outpatient antidiabetic regimen below. PLAN FOR INPATIENT GLYCEMIC CONTROL: No changes needed to current regimen. * No basal insulin needed * Continue NovoLog per scale ACHS/Q6hrs while NPO * Goal range = 120- 160 mg/dl * CF = 30 mg/dl/unit * CR = 1 unit for ever 18 g CHO consumed * A1c added to discharge instructions to be communicated to PCP. * Pharmacy is signing off of glycemic consult and will no longer be making adjustments to inpatient regimen. Please feel free to re-consult if needed. Thank you. DISCHARGE RECOMMENDATIONS: * A1c 6.5 % on 04/04/17 * No insulin needed at discharge * May resume outpatient med/regimen of metformin 500mg PO daily
[2017-04-05 07:49] VITALS: BP 146/84; PULSE 79; TEMP 36.6; O2SAT 92
[2017-04-05] MEDS: ASPIRIN 81 MG ECTAB PO SCH (07:54)
[2017-04-05] MEDS: TRIAMTERENE/HCTZ 37.5/25MG CAP PO SCH (07:54)
[2017-04-05] MEDS: GABAPENTIN 100 MG CAP PO SCH (07:55)
[2017-04-05] MEDS: MULTIVITAMIN TAB PO SCH (07:55)
[2017-04-05] MEDS: INSULIN ASPART 100 UNITS/ML 3 ML PEN SC SCH (08:04)
--- NOTE | 2017-04-05 09:35 | Surgery Progress Note ---
Subjective Date of Service: Apr 05, 2017. pt. denies SOB. She notes left sided rib pain. Objective Vitals Date Time Temp Pulse Resp B/P (MAP) Pulse Ox O2 Delivery O2 Flow Rate FiO2 04/05/17 08:34 Room Air 04/05/17 08:00 Room Air 04/05/17 07:49 36.6 79 18 146/84 (104) 92 Room Air 04/05/17 03:52 36.5 85 20 126/81 (96) 92 Room Air 04/05/17 00:00 93 Room Air 04/04/17 23:36 36.8 89 20 131/78 (95) 92 Room Air 04/04/17 19:35 36.7 80 18 139/78 (98) 93 Room Air 04/04/17 16:00 Room Air 04/04/17 15:45 36.8 74 20 126/76 (93) 92 Room Air 04/04/17 12:30 Room Air 04/04/17 12:28 62 16 134/83 (100) 93 04/04/17 10:27 77 93 Physical Exam General: + well developed, + well nourished, No distress CV: + RRR Pulmonary: + lungs clear, No accessory muscle use, No respiratory distress Extremities: No calf tenderness Neurologic: + alert & oriented x 3 Radiology CXR shows left sided rib fractures; no lung contusion; trace left pleural effusion Assessment & Plan 87 year old female s/p fall resulting in rib fractures -continue analgesics -continue IS, ambulation, and pulmonary toilet -we will see in office in 1 week with repeat CXR (will call her to arrange)
[2017-04-05] MEDS ORDERED: TRAMADOL HCL 50 MG TAB ONE (09:49)
[2017-04-05] MEDS ORDERED: TRAMADOL HCL 50 MG TAB PO PRN (10:00)
--- NOTE | 2017-04-05 10:34 | Progress Note ---
Medicine Progress Note Date & Time of Visit: Apr 05, 2017 at 10:26. Subjective patient seen sitting up in bed states left lateral/posterior back pain improving denies dyspnea, cough, fever/chills, hemoptysis no other pain no dizziness, ambulates with no problems denies other symptoms states she is ready and would like to be discharged today she will stay with her daughter for the time being Objective Last 8 Hrs Date Time Temp Pulse Resp B/P (MAP) Pulse Ox O2 Delivery O2 Flow Rate FiO2 04/05/17 08:34 Room Air 04/05/17 08:00 Room Air 04/05/17 07:49 36.6 79 18 146/84 (104) 92 Room Air 04/05/17 03:52 36.5 85 20 126/81 (96) 92 Room Air Physical Exam: General- oriented x 3, not in distress, speaks in sentences with no effort Head- atraumatic Eyes- EOMI, anicteric ENT- oropharynx clear Neck- supple, no JVD, no adenopathy, no thyromegaly Lungs- clear breath sounds bilaterally, no rales/wheezes small hematoma on the left chest wall- below the breast Heart- regular rhythm; no murmur, normal rate Abdomen- normal bowel sounds, soft, nontender Extremities- no pretibial edema, no calf tenderness; peripheral pulses intact Neuro- alert, oriented x 3; no gross deficits Skin- warm & dry Laboratory Results: Last 24 Hours Test 04/04/17 11:32 04/04/17 16:19 04/04/17 20:01 04/05/17 07:32 Bedside Glucose 102 mg/dl 100 mg/dl 130 mg/dl 116 mg/dl Assessment & Plan 87 yo F presents with multiple rib fractures to left chest wall after a fall from standing height. Left Rib Fractures 5th-9th - s/p Fall - CT chest: acute nondistracted left lateral 5th through 9th rib fractures. No additional fracture is identified. There is no airspace consolidation, pleural effusion, or pneumothorax. There is no evidence of solid organ injury in the abdomen or pelvis. No acute infectious or inflammatory findings are seen in the abdomen or pelvis. Mild colonic diverticulosis without CT evidence of acute diverticulitis. - Thoracic Surgeon Dr. Hoang consulted repeat CXR done, not much change, no pneumothorax - patient remained stable pain still significant, worse with movement but improved PT /OT recommend return home d/c plan: Tylenol PRP for pain Tramadol 50mg q6h PRN pain will avoid NSAIDs as patient has CKD, GFR 40s Incentive spirometry emphasized also may use Ice Packs PRN - follow up with Dr. Hoang in 1 week, will also need repeat CXR on that day - follow up with PCP in 1 week Hypertension - -stable,cont Maxzide per home regimen Type II Diabetes: -- continue Metformin Dyslipidemia -Continue Zocor per home regimen Peripheral Neuropathy -Continue gabapentin per home regimen History PAD -Continue medical management with ASA 81, statin CKD Stage III - at baseline. Follow up: - follow up with Dr. Hoang in 1 week, will also need repeat CXR on that day - follow up with PCP in 1 week Current Inpatient Medications: Current Inpatient Medications Medications (Trade) Dose Ordered Sig/Latoya Route Start Time Stop Time Status Last Admin Dose Admin Ioversol (Optiray 320) 116 ml UD PRN IV 04/03/17 16:45 04/07/17 16:44 Acetaminophen (Tylenol Tab) 650 mg Q4H PRN PO 04/03/17 18:45 05/03/17 18:44 04/05/17 07:55 650 MG Ondansetron HCl (Zofran Inj) 4 mg Q6H PRN IV 04/03/17 18:45 05/03/17 18:44 Insulin Aspart (novoLOG ASPART) SLIDING SCALE If C... ACHS SC 04/03/17 21:00 05/03/17 20:59 04/05/17 08:04 3 UNITS Glucose (Glucose 40% Gel) 15-30 GRAMS 15 GRAMS... UD PRN PO 04/03/17 18:45 05/03/17 18:44 Glucose (Glucose Chew Tab) 4-8 Tablets 4 Tabl... UD PRN PO 04/03/17 18:45 05/03/17 18:44 Dextrose (Dextrose 50% 50ML Syringe) 25-50ML OF 50% DW IV FOR... UD PRN IV 04/03/17 18:45 05/03/17 18:44 Glucagon (Glucagon Inj) 1 mg UD PRN SQ 04/03/17 18:45 05/03/17 18:44 Miscellaneous (Iv Fluids Completed) 1 ea PRN PRN N/A 04/03/17 20:45 04/03/18 20:44 Lidocaine (Lidoderm Patch 5%) 1 patch HS TD 04/03/17 22:30 05/03/17 22:29 04/04/17 21:17 1 PATCH Miscellaneous (Remove Lidoderm Patch) 1 ea DAILY@0900 N/A 04/04/17 09:00 05/04/17 08:59 04/05/17 07:54 1 EA Morphine Sulfate (MoRPHine SULFATE INJ) 4 mg Q4H PRN IV 04/03/17 21:30 04/17/17 21:29 Albuterol (Ventolin Hfa Inhaler) 2 puffs Q4H PRN INH 04/03/17 21:45 05/03/17 21:44 Aspirin (Ecotrin Tab) 81 mg DAILY PO 04/04/17 09:00 05/04/17 08:59 04/05/17 07:54 81 MG Gabapentin (Neurontin Cap) 100 mg TID PO 04/03/17 21:45 05/03/17 21:44 04/05/17 07:55 100 MG Multivitamins (Multivitamin Tab) 1 tab DAILY PO 04/04/17 09:00 05/04/17 08:59 04/05/17 07:55 1 TAB Simvastatin (Zocor Tab) 20 mg QPM PO 04/03/17 21:45 05/03/17 21:44 04/04/17 21:18 20 MG Triamterene/HCTZ (Dyazide 37.5/25 Mg Cap) 1 cap DAILY PO 04/04/17 09:00 05/04/17 08:59 04/05/17 07:54 1 CAP Miconazole Nitrate (Desenex Powder) 1 appln PRN PRN EXT 04/04/17 17:15 05/04/17 17:14 Tramadol HCl (Ultram Tab) 50 mg Q6H PRN PO 04/05/17 10:00 05/05/17 09:59
[2017-04-05] MEDS ORDERED: ULT50X PO (10:41)
[2017-04-05] MEDS ORDERED: ACET-1047 PO (10:41)
--- NOTE | 2017-04-05 10:47 | Discharge Instructions ---
Discharge Instructions Date of Service Apr 05, 2017. Admission Reason for Admission: Multiple Fractures Of Ribs Of Left Side Discharge Discharge Diagnosis / Problem: Left Rib Fractures, 5th to 9th Discharge Goals Goal(s): Diagnostic testing, Therapeutic intervention Activity Recommendations Activity Limitations: as noted below (resume activity gradually as tolerated, no lifting) Lifting Limitations: until after follow-up appointment Exercise/Sports Limitations: until after follow-up appointment Driving or Machine Use: no driving while taking Tramadol . Instructions / Follow-Up Instructions / Follow-Up Please review your new medication instructions and follow instructions carefully. Continue using the Incentive Spirometry at home as much as you can. If you have increasing pain, shortness of breath, cough, call Primary Care Physician or return to ER immediately. Follow up with Dr. Garza (Primary Care Physician) on Saturday April 08, 2017 at 9:55am. Follow up with Dr. Hoang (Thoracic Surgeon) in 1 week. Please call his office for appointment. Tel No. Current Hospital Diet Patient's current hospital diet: Diabetes Type 2 Diet, AHA Diet (Heart Healthy) Discharge Diet Recommended Diet: AHA Diet (Heart Healthy), Diabetes Type 2 Diet Pending Studies Studies pending at discharge: yes List of pending studies: Repeat Chest Xray c/o Dr. Hoang in 1 week Laboratory Results Hemoglobin A1c Test 04/04/17 05:46 Range/Units Estimated Average Glucose 140 mg/dl Hemoglobin A1c 6.5 H 4.5-5.6 % Medical Emergencies . Who to Call and When: Medical Emergencies: If at any time you feel your situation is an emergency, please call 911 immediately. . Non-Emergent Contact Non-Emergency issues call your: Primary Care Provider . . "Provider Documentation" section prepared by Davion Arevalo. . VTE Core Measure Inpt VTE Proph given/why not?: Unfractionated heparin SQ [place] Drug Monitoring Program Search Results: patient reviewed within database, no issues identified
--- NOTE | 2017-04-05 10:57 | Discharge Summary ---
Discharge Summary Date of Service Apr 05, 2017. Discharge Summary Admission Date: Apr 03, 2017 at 18:50 Discharge Date: Apr 05, 2017 Discharge Disposition: Home Principal Diagnosis: Left Rib Fractures 5th-9th Secondary Diagnoses/Problems: Please refer to hospital course below. Procedures: CT SCAN OF THE CHEST, ABDOMEN, AND PELVIS WITH IV CONTRAST CLINICAL HISTORY: Fall. COMPARISON STUDY: No priors. TECHNIQUE: Following the IV administration of 116 of Optiray 320, CT scan of the chest, abdomen, and pelvis was performed from the thoracic inlet to the proximal femora. Images are reviewed in the axial, sagittal, and coronal planes. IV contrast was administered without complication. Automated dose control exposure was utilized. The examination is degraded by streak artifact from the left arm which could not be elevated above the chest or abdomen. FINDINGS: CHEST: Thyroid: Imaged portions of the thyroid gland are normal in size and attenuation. A subcentimeter nodule is noted in the right lobe. Thoracic aorta: There is atherosclerotic calcification of the thoracic aorta, which is normal in caliber and demonstrates standard 3-vessel arch anatomy. No dissection is seen. Pulmonary vasculature: The pulmonary trunk is normal in caliber. There are no filling defects identified in the central pulmonary vessels to indicate pulmonary was. Note that this examination was not protocoled for evaluation of the pulmonary arteries. Heart: The heart is normal in size and configuration, and without pericardial effusion. The coronary arteries are densely calcified. Lungs and pleural spaces: There is no airspace consolidation, pleural effusion, or pneumothorax. Dependent atelectasis is observed. The trachea and central airways are clear. Scattered calcified granulomas are observed. Mediastinum: There is no mediastinal hematoma or lymphadenopathy. Teresa: Clear. Axillae: There is no axillary lymphadenopathy. Bony thorax: The skeletal structures are osteopenic. There are acute and distracted left lateral fifth through ninth rib fractures. The remainder the bony thorax appears intact. No lytic or blastic lesions are identified. Degenerative change is noted in the thoracic spine and shoulders. Soft tissues: The right breast is not identified and presumed surgically absent. ABDOMEN AND PELVIS: Liver: The contrast-enhanced liver is normal in size, contour, and attenuation. There is no intrahepatic or ductal dilatation. The hepatic veins and portal veins are patent. Gallbladder: Unremarkable. Spleen: Normal in size and attenuation. Pancreas: Moderately atrophic and grossly unremarkable. Adrenal glands: Unremarkable. Kidneys: The contrast enhanced kidneys are atrophic and without hydronephrosis. The kidneys enhance symmetrically. A 1.6 cm cyst is noted in the right kidney. Abdominal vasculature: The abdominal aorta is normal in course and caliber noting moderate to advanced atherosclerotic calcification. Bowel: The small bowel and colon are normal in course and caliber. There is mild colonic diverticulosis without CT evidence of acute diverticulitis. The appendix is not identified and reported surgically absent. Peritoneum: There is no intraperitoneal free air or abdominal ascites. There is a small fat-containing umbilical hernia. Lymphadenopathy: None. Pelvic viscera: The bladder is normal as visualized. The uterus is surgically absent. No adnexal lesion is seen. There is a fat-containing left inguinal hernia. Pelvic floor prolapse is suggested. Skeletal structures: The skeletal structures are osteopenic. The lumbosacral spine and bony pelvis appear intact. Moderate lumbosacral spondylosis is observed. No lytic or blastic lesions are seen. IMPRESSION: 1. There are acute nondistracted left lateral 5th through 9th rib fractures. 2. No additional fracture is identified. 3. There is no airspace consolidation, pleural effusion, or pneumothorax. 4. There is no evidence of solid organ injury in the abdomen or pelvis. 5. No acute infectious or inflammatory findings are seen in the abdomen or pelvis. 6. Mild colonic diverticulosis without CT evidence of acute diverticulitis. 7. Additional findings as above. LEFT WRIST 4 VIEWS CLINICAL HISTORY: Fall with left wrist pain. FINDINGS: 4 views of left wrist are obtained. No prior studies are available for comparison at the time of dictation. The skeletal structures are osteopenic. There is no radiographic evidence of left wrist fracture. Mild arthritic change is seen throughout the wrist, greatest at the first carpometacarpal joint. Mild overlying soft tissue edema is observed. IMPRESSION: 1. Soft tissue swelling with no radiographic evidence of left wrist fracture. Consider short-term radiographic follow-up if there is strong clinical concern for occult fracture. 2. Osteopenia and mild arthritic change as above. Consultations: Thoracic Surgeon Dr. Hoang Pending Studies/Follow-Up: Repeat CXR in 1 week c/o Dr. Hoang Medication Reconciliation New Medications: Acetaminophen (Mapap) 325 Mg Tab 650 MG PO Q4H PRN for Pain or Fever for 7 Days do not exceed more than 3,000 mg per day Tramadol HCl (Tramadol HCl) 50 Mg Tab 50 MG PO Q6H PRN for Severe pain, #10 TAB 0 Refills Continued Medications: Albuterol Sulfate (Proventil Hfa) 108 Mcg/Act Aer 2 PUFFS INH Q4H PRN for Wheezing Aspirin (Aspirin Ec) 81 Mg Tab 81 MG PO DAILY Gabapentin (Neurontin) 100 Mg Cap 100 MG PO TID, CAP Metformin Hcl (Glucophage) 500 Mg Tab 500 MG PO DAILY, TAB Multivitamin (Multivitamin) Tab 1 TAB PO DAILY, TAB Simvastatin (Zocor) 20 Mg Tab 20 MG PO QPM, TAB Triamterene/Hctz (Dyazide 37.5MG/25MG) Cap 1 TAB PO DAILY, CAP Admission Information HPI (per Admitting provider): 87 yo F presents to the ER after slipping and falling on a dock earlier today. She was trying to get off the boat and slipped. She hung onto the boat with her left arm and feels she pulled some muscles under her L arm and has pain there as a result. She fell directly onto her L ribs, however, resulting in multiple rib fractures. She denies any lightheadedness or other issues to cause her to trip. She denies LOC and reports feeling well just prior to this. She underwent a trauma scan in the ER which did not show any signs of hemo or pneumothorax or pulmonary contusion. She is in significant pain at this time, worse with any movement. ROS is otherwise negative. Physical Exam (per Admitting): GEN: WNWD, in acute distress with any movement, alert and appropriate, lying supine in bed HEENT: NC/AT, pupils are equal and reactive, normal sclerae, MMM, pharynx non- acute. CARDIO: reg rate, S1/2 heard without m/g/r LUNGS: CTA bilaterally, no crackles, rales or wheezes, good diaphragmatic excursion CHEST WALL: mild ecchymosis to left chest wall, no open wounds, TTP ABD: soft, non-tender, non-distended, no rebound or guarding, +BS EXTREMITY: RP and DP palpable 2+ bilat, no LE swelling or edema, extremities are warm and well-perfused NEURO: (limited exam as patient in severe pain with limited movement) CN 2-12 grossly intact, sensation intact throughout, no gross focal deficits. MUSC: (limited exam as patient in severe pain with limited movement) 5/5 strength throughout, no focal deficits SKIN: warm and dry and bruising as above. Hospital Course 87 yo F presents with multiple rib fractures to left chest wall after a fall from standing height. Multiple Left Rib Fractures: 5th-9th - s/p Fall - CT chest: acute nondistracted left lateral 5th through 9th rib fractures. No additional fracture is identified. There is no airspace consolidation, pleural effusion, or pneumothorax. There is no evidence of solid organ injury in the abdomen or pelvis. No acute infectious or inflammatory findings are seen in the abdomen or pelvis. Mild colonic diverticulosis without CT evidence of acute diverticulitis. - Thoracic Surgeon Dr. Hoang consulted repeat CXR done, not much change, no pneumothorax - patient remained stable pain still significant, worse with movement but improved PT /OT recommend return home d/c plan: Tylenol PRP for pain Tramadol 50mg q6h PRN pain will avoid NSAIDs as patient has CKD, GFR 40s Incentive spirometry emphasized also may use Ice Packs PRN - follow up with Dr. Hoang in 1 week, will also need repeat CXR on that day - follow up with PCP in 1 week Right Thyroid Nodule and Right Kidney Cyst - found on CT scan please refer to Procedure Section above for all details - follow up accordingly Hypertension - -stable,cont Maxzide per home regimen Type II Diabetes: -- continue Metformin Dyslipidemia -Continue Zocor per home regimen Peripheral Neuropathy -Continue gabapentin per home regimen History PAD -Continue medical management with ASA 81, statin CKD Stage III - at baseline. Follow up: - follow up with Dr. Hoang in 1 week, will also need repeat CXR on that day - follow up with PCP in 1 week Total time spent on discharge = 35 minutes This includes examination of the patient, discharge planning, medication reconciliation, and communication with other providers. Discharge Instructions Discharge Instructions Date of Service Apr 05, 2017. Admission Reason for Admission: Multiple Fractures Of Ribs Of Left Side Discharge Discharge Diagnosis / Problem: Left Rib Fractures, 5th to 9th Discharge Goals Goal(s): Diagnostic testing, Therapeutic intervention Activity Recommendations Activity Limitations: as noted below (resume activity gradually as tolerated, no lifting) Lifting Limitations: until after follow-up appointment Exercise/Sports Limitations: until after follow-up appointment Driving or Machine Use: no driving while taking Tramadol . Instructions / Follow-Up Instructions / Follow-Up Please review your new medication instructions and follow instructions carefully. Continue using the Incentive Spirometry at home as much as you can. If you have increasing pain, shortness of breath, cough, call Primary Care Physician or return to ER immediately. Follow up with Dr. Garza (Primary Care Physician) on Saturday April 08, 2017 at 9:55am. Follow up with Dr. Hoang (Thoracic Surgeon) in 1 week. Please call his office for appointment. Tel No. Current Hospital Diet Patient's current hospital diet: Diabetes Type 2 Diet, AHA Diet (Heart Healthy) Discharge Diet Recommended Diet: AHA Diet (Heart Healthy), Diabetes Type 2 Diet Pending Studies Studies pending at discharge: yes List of pending studies: Repeat Chest Xray c/o Dr. Hoang in 1 week Laboratory Results Hemoglobin A1c Test 04/04/17 05:46 Range/Units Estimated Average Glucose 140 mg/dl Hemoglobin A1c 6.5 H 4.5-5.6 % Medical Emergencies . Who to Call and When: Medical Emergencies: If at any time you feel your situation is an emergency, please call 911 immediately. . Non-Emergent Contact Non-Emergency issues call your: Primary Care Provider . . "Provider Documentation" section prepared by Davion Arevalo. . VTE Core Measure Inpt VTE Proph given/why not?: Unfractionated heparin SQ [place] Drug Monitoring Program Search Results: patient reviewed within database, no issues identified
[2017-04-05 11:21] VITALS: BP 127/80; PULSE 85; TEMP 36.6; O2SAT 90
[2017-04-05 12:17] VITALS: BP 127/80; PULSE 85; TEMP 36.6; O2SAT 90
== END 2017-04-05 12:46 | disposition home or self-care (01) ==
LOC: C.EDB 14:49 → C.MED 18:50 → ENRESERV 19:13
PROVIDERS: ADMIT Hospitalist; ATTEND Internal Medicine
DX: S22.42XA Multiple fractures of ribs, left side, initial encounter for closed fracture (principal); S20.219A Contusion of unspecified front wall of thorax, initial encounter; S30.1XXA Contusion of abdominal wall, initial encounter; W01.0XXA Fall on same level from slipping, tripping and stumbling without subsequent striking against object, initial encounter; E04.1 Nontoxic single thyroid nodule; N28.1 Cyst of kidney, acquired; M48.06 Spinal stenosis, lumbar region; E11.9 Type 2 diabetes mellitus without complications; E78.5 Hyperlipidemia, unspecified; G62.9 Polyneuropathy, unspecified; I73.9 Peripheral vascular disease, unspecified; I12.9 Hypertensive chronic kidney disease with stage 1 through stage 4 chronic kidney disease, or unspecified chronic kidney disease; N18.3 Chronic kidney disease, stage 3 (moderate); Z79.82 Long term (current) use of aspirin; Z85.3 Personal history of malignant neoplasm of breast; Z90.10 Acquired absence of unspecified breast and nipple; Z90.710 Acquired absence of both cervix and uterus; Z80.3 Family history of malignant neoplasm of breast

== ENCOUNTER → 2017-04-12 | Outpatient (CLI) | payer OTHER ==
[~2017-04-12] MED LIST: ACET-1047 PO; ALBUAER INH; ASPI81TA28 PO; GABA-112 PO; GLC/500 PO; MULT-506 PO; SIMV20TA2 PO; TRIA37.5 PO; ULT50X PO
--- NOTE | 2017-04-12 08:48 | DIAGNOSTIC IMAGING REPORT ---
CHEST 2 VIEWS ROUTINE CLINICAL HISTORY: S22.49XA Multiple fractures of [id number] trauma COMPARISON STUDY: 2016 FINDINGS: Several left rib fractures are again noted. Minimal left basilar atelectasis. No evidence pneumothorax. Right lung remains clear. No evidence for cardiac enlargement. IMPRESSION: Several left-sided rib fractures unchanged from the prior study. No evidence pneumothorax. Minimal atelectasis left base The above report was generated using voice recognition software. It may contain grammatical, syntax or spelling errors. Electronically signed by: Dwayne Benavidez M.D. 04/12/2017 8:46 AM Dictated Date/Time: 04/12/2017 8:45 AM
== END | disposition home or self-care (01) ==
LOC: C.RAD1850 08:33
PROVIDERS: ATTEND Surgery
DX: S22.49XA Multiple fractures of ribs, unspecified side, initial encounter for closed fracture (principal); X58.XXXA Exposure to other specified factors, initial encounter

== ENCOUNTER 2017-08-14 08:48 | Emergency (ER) | payer OTHER ==
[~2017-08-14] VITALS: Ht 154.9 cm; Wt 80.0 kg
[2017-08-14 08:55] VITALS: TEMP 36.9; Ht 154.9 cm; Wt 80.0 kg
--- NOTE | 2017-08-14 09:52 | DIAGNOSTIC IMAGING REPORT ---
L KNEE 3 VIEWS CLINICAL HISTORY: Left knee pain COMPARISON: None. DISCUSSION: The bones are osteopenic. No acute fractures are visualized. There are mild osteoarthritic changes present. There is subtle chondrocalcinosis. There is a probable small supra patellar joint effusion. IMPRESSION: 1. Mild osteophytic change 2. No acute fractures 3. Suspected small joint effusion Electronically signed by: Lizandro Alexander M.D. 08/14/2017 9:50 AM Dictated Date/Time: 08/14/2017 9:49 AM
[2017-08-14 10:40] VITALS: BP 156/95; PULSE 70; O2SAT 95
--- NOTE | 2017-08-16 17:56 | EMERGENCY ROOM VISIT NOTE ---
ED Visit Note First contact with patient: 08:54 CHIEF COMPLAINT: Left Knee injury HISTORY OF PRESENT ILLNESS: This 87-year-old white female patient presents to the ED for evaluation of her left knee. Her [id number] accompanies her today. Patient states that her knee began bothering her several months ago. It increased significantly last night and worsened today. It is global around the knee. She has a known history of DJD. She states it does radiate into the thigh and calf. No numbness or tingling. She feels her knee is swollen. No specific injury. She states the pain woke her from sleep. She denies any back pain. She has tried activity modification, ice, and elevation without improvement. She is having difficulty with ambulation. REVIEW OF SYSTEM: HEENT: No dizziness, visual problems, hearing loss, or tinnitus. There is no difficulty swallowing and no oral lesions are present. PULMONARY: No cough, shortness of breath, sputum production or hemoptysis. CARDIOVASCULAR: No chest pain, palpitations, shortness of breath or peripheral edema. GASTROINTESTINAL: No diarrhea, constipation, nausea, vomiting, or abdominal pain. GENITOURINARY: No dysuria, frequency, urgency or nocturia. NEUROLOGIC: No weakness, muscle tenderness, epilepsy or history of neurological problems. No history of chronic headaches. MUSCULOSKELETAL: No history of joint tenderness/swelling. Positive history of arthritis and arthralgias. SKIN: No rashes or lesions. Endocrine: Positive history of diabetes. PMH: Significant for osteoarthritis, hypertension, chronic kidney disease, history of bronchitis, history of DVT, diabetes, breast cancer. Previous surgeries: Mastectomy 2007, carpal tunnel release, tonsillectomy, appendectomy, right total knee arthroplasty Current medications: Reviewed and filed in patient's chart Allergies: Aspartame, Zithromax, codeine, omeprazole SOCIAL HISTORY: Patient lives at home with her . Retired. No tobacco use, no EtOH use. PHYSICAL EXAM: Vital Signs: Reviewed Nurse's notes. Afebrile. MENTAL STATUS: Alert, oriented, and cooperative. Skin: Warm and dry with good turgor. No rashes or lesions. No ecchymosis or erythema. The patient is not diaphoretic. No abrasions. No significant effusion in the left knee. Musculoskeletal: The left knee has discomfort with palpation over the medial joint line. She also has lateral joint line discomfort but it is less than the medial aspect. Stable collateral ligaments. No defect in the patellar tendon or quadriceps tendon. She lacks just a few degrees of terminal extension. Flexion to greater than 90. Strength is 5/5 with fair quad tone. She has medial pain with circumduction testing. She is able to do a straight leg raise. There is no joint effusion. The patient walks with an antalgic gait. Neurologic: Gross sensation is intact across the left leg by soft touch. EMERGENCY DEPARTMENT COURSE: Radial graphic imaging obtained today was read by radiology as positive for arthritic change. No evidence for acute fracture. DIAGNOSIS: Left knee pain/DJD DISCHARGE INSTRUCTIONS: Patient was educated regarding today's findings. Conservative care measures were discussed. Tylenol 650 mg and Motrin 400 mg every 6 hours if needed for pain. Ice and elevation to the knee frequently for the next 72 hours. Stay off the leg as much as possible and see your orthopedist if you are not improving. Possibility of cortisone injection and physical therapy prescription were discussed. She may discuss this with her orthopedist as well. Return to the ED for any acute changes. She was reassured that I do not suspect ligament rupture, fracture, or gout at this time. Possibility of exacerbation of her arthritis was discussed. I suspect her hypertension is situational due to her pain and will resolve. She should have it rechecked this week to be sure. Problem List Medical Problems: (1) Breast cancer Status: Chronic (2) Carpal tunnel syndrome Status: Chronic (3) CKD (chronic kidney disease), stage III Status: Chronic (4) Diabetes mellitus, type 2 Status: Chronic (5) Diverticulosis Status: Chronic (6) Dyslipidemia Status: Chronic (7) Lumbar spinal stenosis Status: Chronic (8) PAD (peripheral artery disease) Status: Chronic (9) Peripheral neuropathy Status: Chronic Surgical Problems: (1) H/O mastectomy Status: Chronic (2) S/P appy Status: Chronic (3) S/P ALIYA (total abdominal hysterectomy) Status: Chronic (4) S/P tonsillectomy Status: Chronic Current/Historical Medications Scheduled Aspirin (Aspirin Ec), 81 MG PO DAILY Gabapentin (Neurontin), 100 MG PO TID Multivitamin (Multivitamin), 1 TAB PO DAILY Simvastatin (Zocor), 20 MG PO QPM Triamterene/Hctz (Dyazide 37.5MG/25MG), 1 TAB PO DAILY Scheduled PRN Acetaminophen (Mapap), 650 MG PO Q4H PRN for Pain or Fever Albuterol Sulfate (Proventil Hfa), 2 PUFFS INH Q4H PRN for Wheezing Allergies Coded Allergies: Aspartame (Verified Allergy, Unknown, 08/14/17) Egg (Verified Allergy, Unknown, 08/14/17) Azithromycin (Verified Adverse Reaction, Mild, VOMITING, 08/14/17) Omeprazole (Verified Adverse Reaction, Mild, VOMITING, 08/14/17) Codeine (Verified Adverse Reaction, Unknown, N&V, 08/14/17) Vital Signs Date Time Temp Pulse Resp B/P (MAP) Pulse Ox O2 Delivery O2 Flow Rate FiO2 08/14/17 10:40 70 18 156/95 95 08/14/17 08:55 36.9 96 22 159/95 97 Room Air Departure Information Impression Primary Impression: Left knee DJD Dispostion Home / Self-Care Condition GOOD Forms HOME CARE DOCUMENTATION FORM, MOTRIN USE, TYLENOL USE, IMPORTANT VISIT INFORMATION Patient Instructions [facility] Additional Instructions Tylenol 650 mg and Motrin 400 mg every 6 hours as needed for discomfort Ice to the knee frequently to reduce pain and swelling Gentle motion daily Use a cane or walker to assist with ambulation Follow-up with your orthopedist to discuss physical therapy referral and cortisone injection Return to the ED for any acute changes or worsening of symptoms
== END 2017-08-14 10:40 | disposition home or self-care (01) ==
LOC: C.EDB 08:49
DX: M17.12 Unilateral primary osteoarthritis, left knee (principal); I12.9 Hypertensive chronic kidney disease with stage 1 through stage 4 chronic kidney disease, or unspecified chronic kidney disease; E11.22 Type 2 diabetes mellitus with diabetic chronic kidney disease; N18.3 Chronic kidney disease, stage 3 (moderate); E11.51 Type 2 diabetes mellitus with diabetic peripheral angiopathy without gangrene; E11.42 Type 2 diabetes mellitus with diabetic polyneuropathy; K57.90 Diverticulosis of intestine, part unspecified, without perforation or abscess without bleeding; E78.5 Hyperlipidemia, unspecified; M48.061 Spinal stenosis, lumbar region without neurogenic claudication; Z79.82 Long term (current) use of aspirin; Z86.718 Personal history of other venous thrombosis and embolism; Z85.3 Personal history of malignant neoplasm of breast; Z96.651 Presence of right artificial knee joint; Z90.10 Acquired absence of unspecified breast and nipple; Z90.89 Acquired absence of other organs; Z90.710 Acquired absence of both cervix and uterus